=== PATIENT | male | born 1985 | race Caucasian/White ===

== ENCOUNTER 2016-10-24 11:24 | Day surgery (SDC) | payer OTHER ==
[~2016-10-24] VITALS: Ht 182.9 cm; Wt 114.3 kg
[2016-10-24 11:58] VITALS: BP 110/69; PULSE 65; RESP 14; O2SAT 96
[2016-10-24] MEDS ORDERED: LACT1CAP75 PO (12:01)
[2016-10-24] MEDS ORDERED: IBUP-1827 PO (12:01)
[2016-10-24] MEDS ORDERED: fentaNYL-PF 50 mCg/mL 2 mL Inj ONE (12:56)
[2016-10-24] MEDS ORDERED: 0.9% Sodium Chloride 1,000 ML IV ONE (13:25)
[2016-10-24 13:32] VITALS: BP 122/62; PULSE 62; RESP 14; O2SAT 96
[2016-10-24 13:44] VITALS: BP 119/62; PULSE 58; RESP 12; O2SAT 96
[2016-10-24 13:54] VITALS: BP 122/66; PULSE 58; RESP 16; O2SAT 96
--- NOTE | 2016-10-24 14:03 | ENDO ---
[address] [address] ENDOSCOPY PROCEDURE PATIENT: SEAMUS MAE : 1985 MR#: [id number] ADMIT: 10/24/2016 JOB ID: [id number] DATE: 10/24/2016 PROCEDURE: Esophagogastroduodenoscopy. INDICATION: Gastroesophageal reflux. Patient's ASA classification is one. Mallampati score is two. MEDICATIONS: Versed 4 mg, fentanyl 100 mcg. INSTRUMENT USED: GIF H 180 J. PROCEDURE DETAILS: After informed consent was obtained, the patient was brought into the GI suite, where he was placed on oxygen via nasal cannula and monitored with continuous pulse oximeter, telemetry, and blood pressure monitoring. A time-out was performed, then he was placed in the left lateral decubitus position and medications were administered for sedation. A bite block was placed. The standard esophagogastroduodenoscopy scope was then inserted through the bite block and advanced under direct visualization to the second portion of the duodenum without difficulty. FINDINGS: 1. Normal appearing duodenal bulb, first and second portion. 2. Normal-appearing pylorus, antrum, and gastric body. 3. Retroflexed views in the gastric body revealed a normal-appearing fundus. There was evidence of a sliding hiatal hernia appreciated that was active. 4. Multiple random biopsies were obtained throughout the antrum and body of the stomach. 5. The diaphragmatic hiatus was at approximately 42 cm and the squamocolumnar junction was at 41 cm and appeared regular. The remainder of the esophagus appeared normal. IMPRESSION: Small hiatal hernia. Otherwise, normal exam to the second portion of the duodenum. RECOMMENDATIONS: 1. Take PPI 30 minutes to 1 hour before either breakfast or dinner. 2. Avoid NSAIDs if able. 3. Decrease weight to ideal body weight. 4. Follow up in GI Clinic. COMPLICATIONS: None. ESTIMATED BLOOD LOSS: Less than 5 mL.
--- NOTE | 2016-10-28 10:34 | PATH ---
SURGICAL PATHOLOGY Attending Physician:Janet Frazier CASE STATUS: Signed Out PATIENT NAME: SEAMUS MAE PID: [id number] : 1985 DATE COLLECTED:10/24/2016 21:52 SPECIMEN: Gastric, Biopsy CLINICAL HISTORY: 1). GASTRIC BIOPSY, RULE OUT H.PYLORI FINAL DIAGNOSIS: 1.GASTRIC BIOPSY: FRAGMENT OF GASTRIC FUNDIC MUCOSA WITH HYPEREMIA BUT NEGATIVE FOR SIGNIFICANT INFLAMMATION. Negative for evidence of Helicobacter on H&E stain. Negative for intestinal metaplasia. Negative for dysplasia and malignancy. ICD10 R10.9 GROSS DESCRIPTION: Received in formalin, labeled with the patient's name and "gastric biopsy" is one fragment of ruiz soft tissue measuring 0.3 x 0.2 x 0.2 cm. The fragment is totally submitted in one cassette. ([id number]) MICRO DESCRIPTION: See diagnosis. ICD-9 CODES: CPT CODES: 1: 27904 Electronically Signed Out Jayant Crawley MD [facility] [address], [place] [address] Technical component performed at [facility], [address], [address]
== END 2016-10-24 23:59 | disposition home or self-care (01) ==
LOC: END 11:24
PROVIDERS: ATTEND Internal Medicine Gastroenterology
DX: K44.9 Diaphragmatic hernia without obstruction or gangrene (principal); K21.9 Gastro-esophageal reflux disease without esophagitis; R13.10 Dysphagia, unspecified
CPT/HCPCS: 43239; 88305; G0500; J2250; J3010; J7030